=== PATIENT | female | born 1990 | race Caucasian/White ===

== ENCOUNTER 2018-04-01 01:16 | Emergency (ER) | payer SELFPAY | END 2018-04-01 02:18 | disposition home or self-care (01) | LOC: ERS 01:16 | DX: F12.10 Cannabis abuse, uncomplicated (principal); F17.210 Nicotine dependence, cigarettes, uncomplicated | CPT/HCPCS: 99283 ==

== ENCOUNTER 2018-06-02 17:43 | Emergency (ER) | payer SELFPAY ==
--- NOTE | 2018-06-02 18:57 | CT ---
CT BRAIN WITHOUT CONTRAST: 06/02/18 HISTORY: Headache. COMPARISON: None. FINDINGS: No acute infarct or hemorrhage. No midline shift or mass effect. Ventricular size and extra-axial CSF spaces are normal. The paranasal sinuses and mastoids are clear. Globes are unremarkable. IMPRESSION: No acute intracranial abnormality. POS: [facility]
[2018-06-02] MEDS ORDERED: Ketorolac Tromethamine 30 MG/ML VIAL ONE (19:00)
[2018-06-02] MEDS ORDERED: diphenhydrAMINE 50 MG/ML VIAL ONE (19:00)
[2018-06-02] MEDS ORDERED: Metoclopramide HCl 10 MG/2 ML VIAL ONE (19:02)
[2018-06-02 19:24] LABS: Bilirubin Negative (Negative); Blood, Urine Negative (Negative); Clarity CLOUDY (Clear); Glucose, Urine (Dipstick) Negative (Negative); Leukocyte Moderate (Negative); Nitrite Negative (Negative); Pregnancy Test - Urine (BHCG) Negative (Negative); Pregu Control Background? CLEAR/WHITE (CLR/WHITE); Pregu Control Bar Appear? YES (CONTROL BAR); Protein, Urine (Dipstick) Negative (Neg-Trace); Specific Gravity 1.009 (1.002-1.036); Specific Gravity, Urine 1.009 (1.002-1.036); Urobilinogen 0.2 mg/dL (0.2-1.0); pH, Urine 6.5 (5.0-9.0)
[2018-06-02 19:25] LABS: Bacteria/HPF None Seen HPF (None Seen); Hyaline Casts/LPF 7-10 HYALINE CAST LPF (0-3 Hyaline); Pathc Cast-AUWi Flag 1.74 (0-2.49)
== END 2018-06-02 20:34 | disposition home or self-care (01) ==
LOC: ERS 17:43
DX: R51 Headache (principal); F17.210 Nicotine dependence, cigarettes, uncomplicated
CPT/HCPCS: 70450; 81003; 81015; 81025; 87086; 96365; 96375; J1200; J1885; J2765

== ENCOUNTER 2018-10-24 16:56 | Emergency (ER) | payer SELFPAY | END 2018-10-24 18:37 | disposition home or self-care (01) | LOC: ERS 16:56 | DX: O99.712 Diseases of the skin and subcutaneous tissue complicating pregnancy, second trimester (principal); L03.317 Cellulitis of buttock; L02.31 Cutaneous abscess of buttock; O99.332 Smoking (tobacco) complicating pregnancy, second trimester; F17.210 Nicotine dependence, cigarettes, uncomplicated; Z3A.14 14 weeks gestation of pregnancy | CPT/HCPCS: 10060 ==

== ENCOUNTER 2020-03-15 22:11 | Inpatient (IN) | payer OTHER, SELFPAY ==
[2020-03-15] MEDS ORDERED: Ondansetron PF 4 MG/2 ML Vial ONE (22:22)
[2020-03-15] MEDS ORDERED: Morphine 4 MG/ML VIAL ONE (22:22)
[2020-03-15 23:05] LABS: ALT (SGPT) 19 U/L (8-55); AST (SGOT) 13 U/L (5-34); Albumin 3.9 g/dL (3.5-5.0); Alkaline Phosphatase 105 U/L (40-110); Anion Gap 15 mmol/L (10-20); BUN (Urea Nitrogen) 18 mg/dL (7.0-18.7); Bilirubin, Total 0.3 mg/dL (0.2-1.2); Calc. Creatinine Clearance 0 mL/min (70-130); Calcium 8.8 mg/dL (7.8-10.44); Carbon Dioxide 24 mmol/L (22-29); Chloride 102 mmol/L (98-107); Estimated GFR-MDRD 42; Globulin 3.9 g/dL (2.4-3.5); Glucose 85 mg/dL (70-105); Potassium 3.4 mmol/L (3.5-5.1); Protein, Total 7.8 g/dL (6.0-8.3); Sodium 138 mmol/L (136-145)
[2020-03-15 23:06] LABS: BHCG - Serum Negative (NEGATIVE); Pregs Control Background? CLEAR/WHITE (CLR/WHITE); Pregs Control Bar Appear? YES (CONTROL BAR)
[2020-03-15 23:17] LABS: Band 18 % (5-11); Eosinophils 1 % (0-10); Hemoglobin 13.2 g/dL (12.0-16.0); Lymphocytes 7 % (21-51); MDiff Complete? YES; Mean Corpuscular HGB CONC 32.4 g/dL (32.0-36.0); Mean Corpuscular Hemoglobin 29.2 pg (27.0-31.0); Mean Corpuscular Volume 90.3 fL (78.0-98.0); Mean Platelet Volume 7.9 fL (7.4-10.4); Monocytes 3 % (0-10); Neutrophil 71 % (42-75); Platelet Count 244 thou/uL (130-400); RBC Distribution Width 13.8 % (11.5-14.5); Red Blood Cell (RBC) Count 4.53 mill/uL (4.20-5.40); White Blood Cell (WBC) Count 23.1 thou/uL (4.8-10.8)
[2020-03-16] MEDS ORDERED: Fentanyl 100 MCG/2 ML VIAL ONE ×2 (00:04→02:28)
[2020-03-16] MEDS ORDERED: cefTRIAXone\\ROCEPHIN 2 GM VIAL ONE (00:04)
[2020-03-16] MEDS ORDERED: Ketorolac Tromethamine 30 MG/ML VIAL ONE (00:04)
[2020-03-16 00:25] LABS: Bacteria/HPF 3+ HPF (None Seen); Bilirubin Negative (Negative); Blood, Urine 2+ (Negative); Calcium Oxalate Crystals Rare HPF (None Seen); Clarity Turbid (Clear); Glucose, Urine (Dipstick) 30 mg/dL (Negative); Leukocyte 500 Leu/uL (Negative); Nitrite Negative (Negative); Protein, Urine (Dipstick) 70 mg/dL (Neg-Trace); RBC/HPF 0-3 HPF (0-3); Transitional Epithelial 0-3 HPF (None Seen); Urobilinogen Normal mg/dL (Less than 2); WBC/HPF Greater than 50 HPF (0-3)
[2020-03-16] MEDS ORDERED: Vancomycin 1 GM/200 ML BAG ONE (02:50)
[2020-03-16 04:05] VITALS: BMI 23.1
[2020-03-16] MEDS ORDERED: Sodium Chloride 0.9% 1,000 ML IV SCH (04:45)
[2020-03-16] MEDS ORDERED: Dextrose 5 %-0.45 % NaCl 1,000 ML IV SCH (06:30)
[2020-03-16] MEDS ORDERED: Senokot S 8.6-50 MG TAB PO PRN (06:59)
[2020-03-16] MEDS ORDERED: Acetaminophen 325 MG TAB PO PRN (06:59)
--- NOTE | 2020-03-16 07:42 | ULT ---
ULTRASOUND PELVIC WITH DOPPLER: Date: 03/15/2020 HISTORY: Postoperative bleeding. COMPARISON: CT prior day. FINDINGS: Prior hysterectomy. Adequate vascular flow to both ovaries. There is a 1.5 cm cyst in the left ovary. Adequate follicles of both ovaries. No free fluid. IMPRESSION: Adequate vascular flow to both ovaries. Prior hysterectomy. POS: HOME
--- NOTE | 2020-03-16 07:48 | HP ---
TIME OF SERVICE: 0700 hours. PRESENTING COMPLAINT: Abdominal pain with CT findings consistent with possible pelvic abscess, abnormal urinalysis, and elevated creatinine and white count approximately 3-1/2 weeks, status post total laparoscopic hysterectomy. HISTORY OF PRESENT ILLNESS: Ms. Judge is a 30-year-old, 5, para 5, 4, who underwent a total laparoscopic hysterectomy on February 20. This was performed at [facility]. Because of current computer conversion, no records from this hospitalization are available. The patient reports that she was doing well up until about six or so days ago, then she started developing lower abdominal and back pain. She has had progressive nausea. She has had subjective fever and reports objective fever to 102 degrees. She presented to the [facility] Emergency Room two days ago and was prescribed medication, which she has with her. This medication was Macrodantin, ibuprofen , and Maynard. She states the pains continued to get worse and she is feeling worse and developed chills and came into the emergency room at [place] today. CT scan and pelvic ultrasound were performed. Official read is not back. Temporary read reveals possible "nonspecific edema in the retroperitoneal fat of the lower abdomen and pelvis, if possible small abscess or phlegmon in the pelvic cul-de-sac." This could also be edema surrounding normal pelvic fat correlate clinically, peritonitis and/or enteritis cannot exclude cecitis. No bowel obstruction or free air. Ultrasound was rather nonspecific except for gallbladder sludge in the right upper quadrant. ER doctor called me and stated he felt the patient had pelvic cellulitis and requested admission. Laboratory findings beyond elevated white count was not mentioned. 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 Denies history of dysplasia or STDs. PAST MEDICAL HISTORY: Denies. PAST SURGICAL HISTORY: C-sections and tonsils. ALLERGIES: NAUSEA AND VOMITING WITH CODEINE. MEDICATIONS: None other than the Macrodantin prescribed at the [place] [facility] and ibuprofen. Of note, the patient states she has been doubling up on ibuprofen secondary to her pain. SOCIAL HISTORY: Denies alcohol or IV drug abuse. Reports tobacco use. FAMILY HISTORY: Noncontributory beyond the History of Present Illness. REVIEW OF SYSTEMS: Noncontributory beyond the History of Present Illness. PHYSICAL EXAMINATION: VITAL SIGNS: Currently, vital signs on admission were temperature 97.6, pulse 92, respirations 18, and blood pressure 109/60. The patient feels warmer than 97.6 on exam today. GENERAL: She looks mildly distressed, but is resting comfortably. LUNGS: Clear to auscultation bilaterally. HEART: Regular rate and rhythm. ABDOMEN: Nondistended. She has hypoactive bowel sounds. She has significant discomfort without fluid wave, possible mild guarding, no rebound in all 4 quadrants. She does not have significant CVA tenderness. PELVIC: Deferred. EXTREMITIES: Without clubbing, cyanosis, or edema. The patient reports she is voiding with ease. LABORATORY DATA: Admission white count was 23.1, this was performed slightly before midnight with hematocrit of 40.9. She had 71% neutrophils, 18% bands. Her potassium was hypokalemic at 3.4, creatinine is elevated at 1.46. No prior creatinine is available. LFTs are within normal limits. Urinalysis, which was a clean-catch performed after midnight was turbid, normal specific gravity, elevated protein, 2+ blood, 500+ leukocyte esterase, greater than 50 wbc's, 3+ bacteria and 21 to 50 hyaline casts. IMAGING DATA: As noted in the HPI. IMPRESSION: A 30-year-old white female approximately 3 plus weeks, status post total laparoscopic hysterectomy with complex presentation. Looking at the urinalysis, urinary tract infection seems most likely. Looking through the CT scan myself, the patient seemed to be significantly constipated with some soft tissue changes in the pelvis, but no real definitive abscess. Await official radiology read. This appears to have been a noncontrast study, so difficult to further assess the urinary tract. Beyond, it may be unwise to administer contrast at this time with elevated creatinine. Ureteral injury is a possibility but seems somewhat unlikely with this presentation. Acute UTI, possible pyleonephritis seems most likely diagnosis. Delayed pelvic abscess/cellulitis, status post hysterectomy is also a possibility as well. Blood cultures and urine cultures are pending. Urine culture is understandable concerning the patient's urinalysis, blood cultures. Review in the ER, temperatures did not reveal any febrile morbidity, so uncertain as to indication for these, although this certainly seem reasonable. Creatinine most likely elevated due to ibuprofen use, although ureteral injury not completly ruled out on non contrast study. PLAN: Rocephin 1 g q.12 hours, Flagyl 800 q.8. The patient was administered vancomycin in the emergency room, but we will discontinue this at this time. I discussed patient case with Dr. Johns, and he wishes to take over the patient's care. OB hospitalist will be available to follow along and provide care if necessary. Repeat comp met and cbc ordered. Job ID: [id number] MTDD
[2020-03-16] MEDS ORDERED: metroNIDAZOLE 500 MG in Premix Bag 1 BAG IVPB SCH (08:00)
--- NOTE | 2020-03-16 08:03 | CT ---
PRELIMINARY REPORT/[facility]/EMERGENCY AFTER HOURS PROCEDURE: CT abdomen and pelvis with contrast: Comparison: None Findings: No significant abnormality in the lung bases. Normal gallbladder. No biliary ductal dilatat ion. No hydronephrosis or symptomatic urinary calculus. The solid organs and vasculature are otherwise normal. There appears to be a small normal appendix. Large amount of edema in the peritonea l and retroperitoneal fat of the pelvis and lower abdomen where there is small bowel wall thickening. This also surrounds the area of the sigmoid colon. There may be a small fluid collection in the pelvic cul-de-sac on image #68 measuring 2.7 x 1.5 cm. This could also be edema surrounding. Normal pelvic fat. The bladder is normal size and the uterus is absent. The evaluation for small abno rmal fluid collections is somewhat limited due to lack of bowel contrast Impression: Nonspecific edema in the peritoneal fat and retroperitoneal fat of the lower abdomen and pelvis. Possible small abscess or phlegmon in the pelvic cul-de-sac. This could also be edema surrounding normal pelvic fat. Correlate clinically for peritonitis and/or enteritis. Cannot exclude cystitis. No bowel obstruction or free air. ELECTRONICALLY SIGNED BY: Navin Briggs MD Mar 16, 2020 1:53:12 AM CDT FINAL REPORT: EMERGENT AFTER HOURS CT ABDOMEN AND PELVIS WITH IV CONTRAST: HISTORY: Three-day history of worsening abdominal pain. Subjective fever with nausea. Worsening dysuria and fl ank pain. COMPARISON: 03/14/2020 IMPRESSION: 1. Inflammatory stranding/edema is seen within the lower abdomen but predominantly in the pelvis whic h is overall nonspecific. Exact etiology for the inflammatory changes and edema is uncertain based on this exam. Urinary bladder is decompressed, and urinary bladder skaggs are not thickened to suggest cystitis as a possibility. No colonic wall thickening is appreciated. The appendix where seen does appear normal in caliber. Enteritis or peritonitis is a possibility. Short interval follow-up is anahi mmended. 2. Small amount of free fluid in the pelvis. A defined fluid collection is not appreciated to definit anna suggest abscess collection. No free intraperitoneal gas is identified. 3. Increased density layering dependently within the gallbladder lumen which may represent gallbladde r calculi and/or sludge. 4. Punctate nonobstructing inferior pole right renal calculus. 5. Liver is enlarged measuring 21.6 cm in craniocaudal dimensions. 6. Mildly prominent left periaortic lymph nodes which are nonspecific but may be reactive in origin. 7. Findings are in agreement with pulmonary report by [facility]. Transcribed Date/Time: 03/16/2020 9:00 AM
[2020-03-16] MEDS: metroNIDAZOLE 500 MG in Premix Bag 1 BAG IVPB SCH ×2 (08:04→16:06)
--- NOTE | 2020-03-16 08:06 | ULT ---
PRELIMINARY REPORT/[facility]/EMERGENCY AFTER HOURS PROCEDURE EXAM: US Abdomen Limited, Right Upper Quadrant. CLINICAL HISTORY: ABD pain, N/V, constipation TECHNIQUE: Real-time ultrasound of the right upper quadrant with image documentation. COMPARISON: CT - CT ABDOMEN PELVIS W CON - 03/16/2020 12:33 AM CDT FINDINGS: LIVER: Appears enlarged at 19.8 cm. GALLBLADDER: No gallstone. No wall thickening. No pericholecystic fluid. Gallbladder sludge is noted. COMMON BILE DUCT: No dilation. Measures 4.2 mm PANCREAS: Unremarkable as visualized. The distal pancreas is obscured by overlying bowel gas. RIGHT KIDNEY: Prominence of the renal pelvis is noted. Measures 12 cm IMPRESSION: Gallbladder sludge with no evidence for acute cholecystitis ELECTRONICALLY SIGNED BY: Christiano Chavez MD Mar 16, 2020 2:30:00 AM CDT This report is intended for review by the ordering physician only, in accordance of law. If you recei ve this report in error, please call [facility] at [phone]. FINAL REPORT EMERGENT AFTER HOURS RIGHT UPPER QUADRANT ULTRASOUND: HISTORY: Abdominal pain for one day. Nausea and vomiting. Constipation for 3 days. IMPRESSION: 1. Small amount of gallbladder sludge. No gallbladder calculus is seen. Common duct is normal in rosangela jessa measuring 4 mm in diameter. 2. No evidence of hydronephrosis. 3. Hepatomegaly with liver measuring 21 cm in craniocaudal dimensions. 4. Findings are in agreement with the preliminary report by [facility]. Transcribed Date/Time: 03/16/2020 9:12 AM
--- NOTE | 2020-03-16 08:25 | RAD ---
PORTABLE CHEST: INDICATION: Fever. UTI. FINDINGS: Lungs appear clear. No evidence of infiltrate. Heart and mediastinum unremarkable. IMPRESSION: No acute process. POS: [facility]
[2020-03-16] MEDS: Butorphanol Tartrate 1 MG/ML VIAL SLOW IVP PRN ×2 (08:54→19:53)
[2020-03-16 08:57] LABS: ALT (SGPT) 14 U/L (8-55); AST (SGOT) 10 U/L (5-34); Albumin 3.1 g/dL (3.5-5.0); Alkaline Phosphatase 84 U/L (40-110); Anion Gap 10 mmol/L (10-20); BUN (Urea Nitrogen) 9 mg/dL (7.0-18.7); Bilirubin, Total 0.3 mg/dL (0.2-1.2); Calc. Creatinine Clearance 112 mL/min (70-130); Calcium 7.5 mg/dL (7.8-10.44); Carbon Dioxide 23 mmol/L (22-29); Chloride 103 mmol/L (98-107); Estimated GFR-MDRD Greater than 90; Globulin 2.7 g/dL (2.4-3.5); Glucose 98 mg/dL (70-105); Potassium 3.1 mmol/L (3.5-5.1); Protein, Total 5.8 g/dL (6.0-8.3); Sodium 133 mmol/L (136-145)
[2020-03-16] MEDS: Famotidine/PF 20 mg/2ml Vial SLOW IVP SCH ×2 (08:57→19:54)
[2020-03-16 09:15] LABS: Band 13 % (5-11); Hemoglobin 10.9 g/dL (12.0-16.0); Lymphocytes 1 % (21-51); MDiff Complete? YES; Mean Corpuscular HGB CONC 33.1 g/dL (32.0-36.0); Mean Corpuscular Hemoglobin 29.4 pg (27.0-31.0); Mean Corpuscular Volume 88.9 fL (78.0-98.0); Mean Platelet Volume 7.9 fL (7.4-10.4); Monocytes 3 % (0-10); Neutrophil 83 % (42-75); Platelet Count 200 thou/uL (130-400); Platelet Morphology Comment Appears Adequate; RBC Distribution Width 13.9 % (11.5-14.5); RBC Morphology Normal; Red Blood Cell (RBC) Count 3.72 mill/uL (4.20-5.40); White Blood Cell (WBC) Count 24.8 thou/uL (4.8-10.8)
[2020-03-16] MEDS: Ketorolac Tromethamine 30 MG/ML VIAL IVP SCH ×3 (10:07→22:03)
[2020-03-16] MEDS: Dextrose 5%-Lactated Ringers 1,000 ML IV SCH ×2 (10:10→21:18)
[2020-03-16] MEDS ORDERED: Iopamidol-370 76% 500 ML 1 ML ONE (10:25)
[2020-03-16] MEDS: Sodium Chloride 0.9% 1,000 ML IV SCH ×2 (11:48→13:27)
[2020-03-16] MEDS: Acetaminophen 500 MG TAB PO SCH ×2 (12:09→19:53)
[2020-03-16] MEDS ORDERED: cefTRIAXone\\ROCEPHIN 1 GM in Sodium Chloride 0.9% 100 ML IVPB SCH (13:00)
[2020-03-16] MEDS: cefTRIAXone\\ROCEPHIN 1 GM in Sodium Chloride 0.9% 100 ML IVPB SCH (13:25)
[2020-03-16] MEDS ORDERED: Vancomycin 1 GM in Premix Bag 1 BAG IVPB SCH (14:00)
[2020-03-16] MEDS ORDERED: Bisacodyl 10 MG SUPP PR SCH (14:45)
[2020-03-16] MEDS: Ondansetron PF 4 MG/2 ML Vial IVP PRN (16:21)
[2020-03-17] MEDS: Ondansetron PF 4 MG/2 ML Vial IVP PRN (00:11)
[2020-03-17] MEDS: Butorphanol Tartrate 1 MG/ML VIAL SLOW IVP PRN ×3 (00:11→23:57)
[2020-03-17] MEDS: metroNIDAZOLE 500 MG in Premix Bag 1 BAG IVPB SCH ×4 (00:12→23:55)
[2020-03-17] MEDS: Sodium Chloride 0.9% 1,000 ML IV SCH ×4 (00:15→23:14)
[2020-03-17] MEDS: cefTRIAXone\\ROCEPHIN 1 GM in Sodium Chloride 0.9% 100 ML IVPB SCH ×2 (01:56→13:40)
[2020-03-17] MEDS: Dextrose 5%-Lactated Ringers 1,000 ML IV SCH ×3 (03:13→20:38)
[2020-03-17] MEDS: Ketorolac Tromethamine 30 MG/ML VIAL IVP SCH ×4 (04:48→22:24)
[2020-03-17] MEDS: Acetaminophen 500 MG TAB PO SCH ×3 (04:48→20:37)
[2020-03-17] MEDS: Famotidine/PF 20 mg/2ml Vial SLOW IVP SCH ×2 (08:30→20:37)
[2020-03-17] MEDS ORDERED: Triple Antibiotic Oint 1 GM Packet TOP PRN (23:04)
[2020-03-18] MEDS: cefTRIAXone\\ROCEPHIN 1 GM in Sodium Chloride 0.9% 100 ML IVPB SCH ×2 (01:32→12:41)
[2020-03-18] MEDS: Dextrose 5%-Lactated Ringers 1,000 ML IV SCH ×2 (01:56→07:53)
[2020-03-18] MEDS: Ketorolac Tromethamine 30 MG/ML VIAL IVP SCH ×2 (04:25→11:07)
[2020-03-18] MEDS: Acetaminophen 500 MG TAB PO SCH ×2 (04:25→11:07)
[2020-03-18 07:35] VITALS: BP 94/55; TEMP 98.2
[2020-03-18] MEDS: Sodium Chloride 0.9% 1,000 ML IV SCH (07:52)
[2020-03-18] MEDS: Famotidine/PF 20 mg/2ml Vial SLOW IVP SCH (07:52)
[2020-03-18] MEDS: metroNIDAZOLE 500 MG in Premix Bag 1 BAG IVPB SCH (07:53)
--- NOTE | 2020-03-19 03:51 | DIS ---
DATE OF ADMISSION: 03/16/2020 DATE OF DISCHARGE: 03/18/2020 ADMITTING DIAGNOSES: 1. Status post robotic hysterectomy, 02/21/2020. 2. Fever, 102. 3. Nausea and vomiting. 4. Vaginal cuff cellulitis. POSTOPERATIVE DIAGNOSES: 1. Status post robotic hysterectomy, 02/21/2020. 2. Fever, 102. 3. Nausea and vomiting. 4. Vaginal cuff cellulitis. PROCEDURES: There were no procedures done. DISCHARGE MEDICATIONS: 1. Duricef 500 one p.o. b.i.d. x7 days. 2. Metronidazole 500 mg one p.o. b.i.d. x7 days. 3. Zofran 4 mg one tab p.o. q.4 to 6 hours p.r.n. nausea, vomiting. DISCHARGE INSTRUCTIONS: No heavy lifting greater than 15 pounds. No driving on pain medications. Pelvic rest for four weeks. Notify physician for temperature greater than 100.6, heavy vaginal bleeding or discharge, severe nausea, vomiting, or is indicated. HOSPITAL COURSE: As follows; Ms. Joaquina Judge is a 30-year-old white female, G5, P5, followed my clinic for [facility] care. As outlined, she underwent an uncomplicated robotic hysterectomy on 02/21/2020. She was seen at the beginning of last week for her 2-week postop visit. She had no problems or complaints at that time. She did inquire about resuming sexual activity and I gave her strict precautions about the dangers of resuming intercourse following hysterectomy. The patient reportedly presented to the [facility] with complaints of urinary tract infection on 03/11/2020. She was given Macrobid, but did not take it because it caused nausea. She was instructed to follow up at the office, which she did not. In addition, she reported to me after admission that she had sex "several" times. Following intercourse, she began to experience more pain and discomfort with nausea and vomiting, approximately 48 hours after she was seen at the bed. She presented to the ER here on the morning of 03/16/2020, with a fever of 102, severe abdominal and back pain and nausea and vomiting. She had a white count of 21,000. She was admitted by Dr. Oniel Roque, who was the hospitalist on-call that morning. I saw her later that day. She was started on antibiotics for what was thought to be either a pelvic abscess or cuff cellulitis. Examination revealed exquisite tenderness at the vaginal cuff. She defervesced nicely and was discharged home on the afternoon of hospital day #3. At the time of discharge, she was ambulating, voiding, and tolerating p.o. well. She had had several bowel movements, which also seemed to be an issue as she reported she was constipated for 5 days. This resolved with Dulcolax suppositories. At the time of discharge, she was afebrile for a full 48 hours. She is going to continue antibiotics, which had been called to her pharmacy. We will see her back on Thursday (72 hours) for followup visit; once again, given her very strict precautions about her activity levels as well as pelvic rest for the next month. Prior to discharge, she was given the opportunity to ask any questions or state any concerns and these have been answered to her satisfaction. Job ID: [id number]
--- NOTE | 2020-03-21 07:28 | PQF ---
HAYLIE DOSHI L JUSTIN MD [id number] [address] [place] [address] [id number] CLINICAL DOCUMENTATION CLARIFICATION FORM: POST DISCHARGE Addendum to original discharge summary date: ____ Late entry note date: 03/22/20 DATE: 03/21/2020 ATTN: Jose Cruz Worley Please exercise your independent, professional judgment in responding to the clarification form. Clinical indicators are provided on the bottom of this form for your review Please check appropriate box(es): [ ] Sepsis due to Vaginal cuff Cellulitis [ X] Localized infection without sepsis [ ] Other diagnosis [ ] Unable to determine In addition, please specify: Present on Admission (POA): [ X] Yes [ ] No [ ] Unable to determine For continuity of documentation, please document condition throughout progress notes and discharge summary. Thank You. CLINICAL INDICATORS - SIGNS / SYMPTOMS / LABS Laboratory 03/15 WBC 23.1; 24.8, Band 18; 13, Neutrophils 71; 83 Blood culture 03/16 No growth at 48 hrs Vital signs 03/16 Temp 103.2, Pulse 102, Resp 30, BP 96/52 H&P p1 03/16 Dr Roque Abdominal pain with Ct findings consistent with possible pelvic abscess, abnormal urinalysis, and elevated creatinine and WBC H&P p3 03/16 Dr Roque Acute UTI, possibly pyelonephritis seems most likely diagnosis Discharge summary p1 03/18 Vaginal cuff Cellulitis RISK FACTORS H&P p1 03/16 S/p Hysterectomy Discharge summary p1 03/18 Vaginal cuff Cellulitis Discharge summary p1 03/18 hx of UTI on 03/11/2020 ED Notes 03/16 Smoker TREATMENTS: DEC 14 IV Ceftriaxone 2gm DEC 14 Metronidazole 500mg oral DEC 14 IVF NS 1L DEC 14 IV Vancomycin 1gm Blood culture 03/16 Pelvis Ultrasound 03/15 CT Pelvic/Abdomen 03/16 (This form is maintained as a part of the permanent medical record) 2014 [employer]. All Rights Reserved [email or web address]
--- NOTE | 2020-03-21 07:29 | PQF ---
HAYLIE DOSHI L JUSTIN MD [id number] [id number] CLINICAL DOCUMENTATION CLARIFICATION FORM: POST DISCHARGE Addendum to original discharge summary date: ____ Late entry note date: 03/22/20 DATE: 03/21/2020 ATTN: Jose Cruz Worley Please exercise your independent, professional judgment in responding to the clarification form. Clinical indicators are provided on the bottom of this form for your review Please check appropriate box(s) to clarify if the following diagnosis has been ruled in or ruled out: UTI [ ] Ruled in diagnosis [ X ] Continue to treat [ ] Resolved [ ] Ruled out diagnosis [ ] Cannot rule out diagnosis [ ] Other diagnosis [ ] Unable to determine For continuity of documentation, please document condition throughout progress notes and discharge summary. Thank You. CLINICAL INDICATORS - SIGNS / SYMPTOMS / LABS Laboratory 03/15 WBC 23.1; 24.8, Band 18; 13, Neutrophils 71; 83 Vital signs 03/16 Temp 103.2, Pulse 102, Resp 30, BP 96/52 Urinalysis 03/16 Turbid, WBC greater than 50, Urine Bacteremia 3+ Urine culture 03/16 Negative growth at 48 hrs H&P p1 03/16 Dr Roque Abdominal pain with Ct findings consistent with possible pelvic abscess, abnormal urinalysis, and elevated creatinine and WBC H&P p3 03/16 Dr Roque Acute UTI, possibly pyelonephritis seems most likely diagnosis RISK FACTORS H&P p1 03/16 S/p Hysterectomy Discharge summary p1 03/18 Vaginal cuff Cellulitis Discharge summary p1 03/18 hx of UTI on 03/11/2020 TREATMENTS: DEC 14 IV Ceftriaxone 2gm DEC 14 Metronidazole 500mg oral DEC 14 IVF NS 1L DEC 14 IV Vancomycin 1gm Pelvis Ultrasound 03/15 CT Pelvic/Abdomen 03/16 Urinalysis 03/16 Urine culture 03/16 (This form is maintained as a part of the permanent medical record) 2014 [employer]. All Rights Reserved [email or web address]
--- NOTE | 2020-03-21 07:30 | PQF ---
HAYLIE DOSHI L JUSTIN MD [id number] [address] [place] [address] [id number] CLINICAL DOCUMENTATION CLARIFICATION FORM: POST DISCHARGE Addendum to original discharge summary date: ____ Late entry note date: __ DATE: 03/21/2020 ATTN: Jose Cruz Worley Please exercise your independent, professional judgment in responding to the clarification form. Clinical indicators are provided on the bottom of this form for your review Please check appropriate box(s) to clarify if the following diagnosis has been ruled in or ruled out: Pelvic Abscess with Peritonitis [ ] Ruled in diagnosis [ X] Continue to treat [ ] Resolved [ ] Ruled out diagnosis [ ] Cannot rule out diagnosis [ ] Other diagnosis [ ] Unable to determine For continuity of documentation, please document condition throughout progress notes and discharge summary. Thank You. CLINICAL INDICATORS - SIGNS / SYMPTOMS / LABS Laboratory 03/15 WBC 23.1; 24.8, Band 18; 13, Neutrophils 71; 83.Vital signs 03/16 Temp 103.2, Pulse 102, Resp 30, BP 96/52 CT abdomen 03/16 Impression: Nonspecific edema in the peritoneal fat and retroperitoneal fat of the lower abdomen and pelvis. Possible small abscess or phlegmon in the pelvic cul-de-sac. This could also be edema surrounding normal pelvic fat. Correlate clinically for peritonitis and/or enteritis H&P p1 03/16 Dr Roque Abdominal pain with Ct findings consistent with possible pelvic abscess, abnormal urinalysis, and elevated creatinine and WBC RISK FACTORS H&P p1 03/16 S/p Hysterectomy Discharge summary p1 03/18 Vaginal cuff Cellulitis Discharge summary p1 03/18 hx of UTI on 03/11/2020 ED Notes 03/16 Smoker TREATMENTS: DEC 14 IV Ceftriaxone 2gm DEC 14 Metronidazole 500mg oral DEC 14 IVF NS 1L DEC 14 IV Vancomycin 1gm Pelvis Ultrasound 6/4 CT Pelvic/Abdomen 03/16 (This form is maintained as a part of the permanent medical record) 2014 [employer] All Rights Reserved [email or web address]
--- NOTE | 2020-03-25 16:54 | PQF ---
HAYLIE DOSHI L JUSTIN MD [id number] [address] [place] [address] [id number] CLINICAL DOCUMENTATION CLARIFICATION FORM: POST DISCHARGE Addendum to original discharge summary date: ____ Late entry note date: __ DATE: 03/25/2020 ATTN: Jose Cruz Worley Please exercise your independent, professional judgment in responding to the clarification form. Clinical indicators are provided on the bottom of this form for your review Please check appropriate box(s): [ ] Pelvic Abscess is a postoperative complication of Hysterectomy [X ] Pelvic Abscess is not a postoperative complication of Hysterectomy [ X] Other diagnosis: Vaginal Cuff Cellulitis due to engaging in sexual intercourse too early in postoperative phase. [ ] Unable to determine CLINICAL INDICATORS - SIGNS / SYMPTOMS / LABS Laboratory 03/15 WBC 23.1; 24.8, Band 18; 13, Neutrophils 71; 83.Vital signs 03/16 Temp 103.2, Pulse 102, Resp 30, BP 96/52 CT abdomen 03/16 Impression: Nonspecific edema in the peritoneal fat and retroperitoneal fat of the lower abdomen and pelvis. Possible small abscess or phlegmon in the pelvic cul-de-sac. This could also be edema surrounding normal pelvic fat. Correlate clinically for peritonitis and/or enteritis H&P p1 03/16 Dr Roque Abdominal pain with Ct findings consistent with possible pelvic abscess, abnormal urinalysis, and elevated creatinine and WBC H&P p1 03/16 S/p Hysterectomy RISK FACTORS H&P p1 03/16 S/p Hysterectomy Discharge summary p1 03/18 Vaginal cuff Cellulitis Discharge summary p1 03/18 hx of UTI on 03/11/2020 ED Notes 03/16 Smoker TREATMENTS: DEC 14 IV Ceftriaxone 2gm DEC 14 Metronidazole 500mg oral DEC 14 IVF NS 1L DEC 14 IV Vancomycin 1gm Pelvis Ultrasound 03/15 CT Pelvic/Abdomen 03/16 (This form is maintained as a part of the permanent medical record) 2014 [employer]. All Rights Reserved [email or web address] [email or web address]
== END 2020-03-18 14:14 | disposition home or self-care (01) | DRG 757 ==
LOC: ERS 22:11 → 3SE 03-16 03:02 → OBSVTOIN 03-16 03:02
PROVIDERS: ADMIT Obstetrics & Gynecology; ATTEND Obstetrics & Gynecology
DX: N76.4 Abscess of vulva (principal); K65.1 Peritoneal abscess; N17.9 Acute kidney failure, unspecified; N39.0 Urinary tract infection, site not specified; K59.00 Constipation, unspecified; F17.210 Nicotine dependence, cigarettes, uncomplicated; R11.2 Nausea with vomiting, unspecified; N73.9 Female pelvic inflammatory disease, unspecified; Z90.710 Acquired absence of both cervix and uterus; Z88.5 Allergy status to narcotic agent; Z87.440 Personal history of urinary (tract) infections; Z79.899 Other long term (current) drug therapy
CPT/HCPCS: 36415; 71045; 74177; 76705; 76856; 80053; 81003; 81015; 83605; 83690; 84703; 85025; 86850; 86900; 86901; 87040; 87086; 93976; 96361; 96365; 96367; 96375; 96376; J0595; J0696; J1885; J2270; J2405; J3010; J3370; J3490; Q9967; S0028